=== PATIENT | female | born 1980 | race African-American/Black ===

== ENCOUNTER 2019-02-21 00:31 | Emergency (ER) | payer BC, OTHER ==
[2019-02-21] MEDS ORDERED: ACETAMINOPHEN 325 MG TABLET PO ONE (00:36)
--- NOTE | 2019-02-21 00:38 | ER Document Report ---
ED Medical Screen (RME) - General Chief Complaint: Sore Throat Stated Complaint: SORE THROAT Time Seen by Provider: 02/21/19 00:33 Notes: Patient is a 38-year-old female presents to the emergency department for generalized sore throat right ear pain. Patient states she started with generalized sore throat and right ear pain on Friday. States on she went to an emergency room in [place]. States at that time she had an negative rapid strep. States she feels as though the pain got better for 24 hours but now is worse. Patient is able to handle her own secretions. GENERAL: Alert, interacts well. No acute distress. ENT: Oral mucosa moist, tongue midline. Pharynx erythematous, tonsils +2 bilaterally and symmetrical no exudate noted. I have greeted and performed a rapid initial assessment of this patient. A comprehensive ED assessment and evaluation of the patient, analysis of test results and completion of the medical decision making process will be conducted by additional ED providers. I have specifically instructed the patient or family members with the patient to immediately return to any nursing staff should anything change in the patient's condition or with their chief complaint. This medical record was dictated with voice recognizing software. There may be grammatical, syntax errors that are unintended.
[2019-02-21] MEDS ORDERED: DEXAMETHASONE SOD PHOS INJ 10 MG/1 ML VIAL IM ONE (02:46)
--- NOTE | 2019-02-21 03:13 | ER Document Report ---
HPI - HPI Time Seen by Provider: 02/21/19 00:33 Pain Level: 4 Context: Patient is a 38-year-old female who presents emergency department with a chief complaint of a sore throat. She also states that her right ear aches and she cannot hear very well on both her ears. She was seen Friday at urgent care and her rapid strep was negative. They did not give her any medications to help with her symptoms. She was told to do some salt water gargles and she did, but her symptoms are not any better. - ROS Notes: REVIEW OF SYSTEMS: CONSTITUTIONAL : Denies recent illness. Denies recent unintentional weight loss. Denies fever, chills, or sweats. EENT: See HPI CARDIOVASCULAR: Denies chest pain. RESPIRATORY: Denies shortness of breath, cough, congestion, difficulty breathing, or wheezing. GASTROINTESTINAL: Denies nausea, vomiting, and diarrhea. Denies abdominal pain. Denies constipation. GENITOURINARY: Denies difficulty urinating, burning, blood in urine, urgency or frequency. MUSCULOSKELETAL: Denies neck and back pain. Denies joint pain or swelling. SKIN: Denies rash, itchiness, or lesions HEMATOLOGIC : Denies easy bruising or bleeding. LYMPHATIC: Denies swollen, painful, enlarged glands. NEUROLOGICAL: Denies no numbness or tingling denies weakness. Denies headache. Denies altered mental status. Denies alteration in speech. PSYCHIATRIC: Denies stress, anxiety, alteration in sleep patterns, or depression. All other systems reviewed and negative. Past Medical History - Social History Smoking Status: Unknown if Ever Smoked Family History: Reviewed & Not Pertinent Vertical Provider Document - CONSTITUTIONAL Notes: PHYSICAL EXAMINATION: GENERAL: Appears well, healthy, well-nourished, no acute distress. HEAD: Normocephalic, atraumatic. EYES: PERRL, conjunctiva normal, all extraocular movements intact, sclera nonicteric ENT: Moist mucous membranes. Erythema and edema noted to tonsils. Small amount of exudate noted to right tonsil. NECK: Supple, no noticeable swelling, redness, rash. Normal range of motion. LUNGS: Equal breath sounds bilaterally and clear to auscultation. No wheezes rales or rhonchi. CARDIOVASCULAR: S1-S2, regular rate, regular rhythm. Radial pulses 2+, normal. ABDOMEN: Normoactive bowel sounds. Soft, nontender, no guarding, no rebound tenderness, and no masses palpated. EXTREMITIES: Normal strength and range of motion, no pitting or edema. No cyanosis. NEUROLOGICAL: Moves all extremities upon command. Strength 5/5 in all extremities. PSYCH: Normal mood, normal affect. SKIN: Warm, dry. No rash, lesions, ulcerations noted. Normal skin turgor. Course - Re-evaluation Re-evalutation: 02/21/19 03:13 Since rapid strep and Monospot tests are both negative. At this time she will receive a dose of Decadron and insulin here in the emergency department, she does have tonsillar exudates. I do not suspect a peritonsillar abscess at this time because her uvula is midline. Follow-up precautions were given. Verbal discharge instructions were given to the patient. They verbalized understanding. They are stable for discharge. - Vital Signs Vital signs: Temp Pulse Resp BP Pulse Ox 98.0 F 76 18 126/65 H 98 02/21/19 01:24 02/21/19 01:24 02/21/19 01:24 02/21/19 01:24 02/21/19 01:24 Discharge - Discharge Clinical Impression: Sore throat, Tonsillar exudate Cerumen impaction Qualifiers: Laterality: bilateral Qualified Code(s): H61.23 - Impacted cerumen, bilateral Condition: Stable Disposition: HOME, SELF-CARE Instructions: Sore Throat ([facility]) Additional Instructions: You have been treated for strep throat. You have been treated with a dose of penicillin here in the emergency department and do not need any additional antibiotics. You have also been given a dose of steroids to help with your throat discomfort. Please continue to take ibuprofen 600 mg every 6 hours or Tylenol 1000 mg every 6 hours as needed for throat discomfort. You can also gargle with salt water. Continue to drink plenty of fluids. Follow-up with your primary care doctor in the next several days. Return if you become unable to swallow, have difficulty breathing, pass out, have persistent vomiting that prevents you from being able to tolerate fluids, or have any other symptoms that are concerning to you. Prescriptions: Carbamide Peroxide [Debrox 6.5 % Otic Drops 15 ml] 10 drop OT ASDIR PRN #1 bottle PRN Reason:
[2019-02-21] MEDS ORDERED: PENICILLIN G BENZATHINE 1.2 MILLION UNIT/2 ML DISP.SYRIN IM ONE (03:19)
[2019-02-21 03:57] VITALS: BP 104/88
== END 2019-02-21 03:59 | disposition home or self-care (01) ==
LOC: ER 00:31
DX: J02.9 Acute pharyngitis, unspecified (principal); H61.23 Impacted cerumen, bilateral; H92.01 Otalgia, right ear
CPT/HCPCS: 99283; 96372; 36415; 87070; 87880; 86308; J0561; J1100